=== PATIENT | male | born 2005 | race African-American/Black ===

== ENCOUNTER 2023-09-28 23:56 | Emergency (ER) | payer SELFPAY ==
--- NOTE | 2023-09-29 00:32 | ED ---
URI HPI - General Source: patient, RN notes reviewed Mode of arrival: ambulatory Limitations: no limitations <Keyla Joe - Last Filed: 09/29/23 03:01> <Deuce Flores - Last Filed: 09/29/23 05:52> - General Stated Complaint: Ear Ache, Sinus Infection, Headache Time Seen by Provider: 09/29/23 00:32 - History of Present Illness Initial Comments: 18-year-old male presented to the ER with a chief complaint of bilateral ear pain and headache. He states that been going on for 5 days. He also is endorsing congestion. States he has been giving hot and cold flashes as well. Denies any chest pain or shortness of breath. Denies any other complaints. (Keyla Joe) - Related Data Previous Rx's Medication Instructions Recorded Amoxic-Pot Clav 875-125Mg 1 tab PO Q12HR #20 tab 09/29/23 [Augmentin 875-125] Allergies Allergy/AdvReac Type Severity Reaction Status Date / Time No Known Allergies Allergy Verified 09/29/23 00:44 Review of Systems ROS Other: All systems not noted in ROS Statement are negative. <Keyla Joe - Last Filed: 09/29/23 03:01> ROS Other: All systems not noted in ROS Statement are negative. <Deuce Flores - Last Filed: 09/29/23 05:52> ROS Statement: Those systems with pertinent positive or pertinent negative responses have been documented in the HPI. General Exam General appearance: alert, in no apparent distress Head exam: Present: atraumatic, normocephalic, normal inspection ENT exam: Present: normal exam, normal oropharynx, mucous membranes moist, TM's normal bilaterally (Erythematous with fluid collection behind bilateral tympanic membranes) Neck exam: Present: normal inspection. Absent: tenderness, meningismus, lymphadenopathy Respiratory exam: Present: normal lung sounds bilaterally. Absent: respiratory distress, wheezes, rales, rhonchi, stridor Cardiovascular Exam: Present: regular rate, normal rhythm, normal heart sounds. Absent: systolic murmur, diastolic murmur, rubs, gallop, clicks Skin exam: Present: warm, dry, intact, normal color. Absent: rash <Keyla Joe - Last Filed: 09/29/23 03:01> - General Exam Comments Initial Comments: Visual Physical Exam Vital signs reviewed General: Well-appearing, nontoxic, no acute distress. Head: Normocephalic, atraumatic Eyes: PERRLA, EOMI ENT: Airway patent Chest: Nonlabored breathing Skin: No visual rash, normal skin tone Neuro: Alert and oriented 3 Musculoskeletal: No gross abnormalities (Keyla Joe) Course Vital Signs 09/29/23 09/29/23 00:42 02:34 Temperature 98 F 98.1 F Pulse Rate 82 85 Respiratory 18 18 Rate Blood Pressure 136/91 130/86 O2 Sat by Pulse 97 98 Oximetry Medical Decision Making <Keyla Joe - Last Filed: 09/29/23 03:01> <Deuce Flores - Last Filed: 09/29/23 05:52> - Medical Decision Making I performed the quick note portion of this chart. Electronically signed by Keyla Joe PA-C Was pt. sent in by a medical professional or institution ([facility] Peters, SOUND E[employer] MANAGER, urgent care, hospital, or [facility]...) When possible be specific @ -No Did you speak to anyone other than the patient for history (EMS, parent, family, police, friend...)? What history was obtained from this source @ -No Did you review nursing and triage notes (agree or disagree)? Why? @ -I reviewed and agree with nursing and triage notes Were old charts reviewed (outside hosp., previous admission, EMS record, old EKG, old radiological studies, urgent care reports/EKG's, [facility] records)? Report findings @ -No old charts were reviewed Differential Diagnosis (chest pain, altered mental status, abdominal pain women, abdominal pain men, vaginal bleeding, weakness, fever, dyspnea, syncope, headache, dizziness, GI bleed, back pain, seizure, CVA, palpatations, mental health, musculoskeletal)? @ -COVID, RSV, influenza, viral sinusitis, pneumonia this list is not meant to be all-inclusive EKG interpreted by me (3pts min.). @ -None X-rays interpreted by me (1pt min.). @ -None done CT interpreted by me (1pt min.). @ -None done U/S interpreted by me (1pt. min.). @ -None done What testing was considered but not performed or refused? (CT, X-rays, U/S, labs)? Why? @ -None What meds were considered but not given or refused? Why? @ -None Did you discuss the management of the patient with other professionals (professionals i.e. , PA, SOUND EFFECTS MANAGER, lab, RT, psych nurse, social science research assistant, sample dye mixer, teacher, radiation officer, risk and insurance manager)? Give summary @ -No Was smoking cessation discussed for >3mins.? @ -No Was critical care preformed (if so, how long)? @ -No Were there social determinants of health that impacted care today? How? (Homelessness, low income, unemployed, alcoholism, drug addiction, transportation, low edu. Level, literacy, decrease access to med. care, [facility], rehab)? @ -No Was there de-escalation of care discussed even if they declined (Discuss DNR or withdrawal of care, Hospice)? DNR status @ -No What co-morbidities impacted this encounter? (DM, HTN, Smoking, COPD, CAD, Cancer, CVA, ARF, Chemo, Hep., AIDS, mental health diagnosis, sleep apnea, morbid obesity)? @ -None Was patient admitted / discharged? Hospital course, mention meds given and route, prescriptions, significant lab abnormalities, going to OR and other pertinent info. @ -Discharge. 18-year-old male presented to the ER with a chief complaint of bilateral ear pain. History and physical exam completed. Vitals stable. Patient in no signs of acute distress and nontoxic-appearing. COVID, RSV, influenza negative. Strep negative. Patient started on Augmentin, first dose in ER. Patient also received IM Decadron and p.o. Tylenol for symptom control in the ER. Return parameters discussed. Patient discharged in stable condition with follow-up to PCP. Patient verbally expressed understanding and agreement with care plan. Case discussed with ED attending, Dr. Flores. Undiagnosed new problem with uncertain prognosis? @ -No Drug Therapy requiring intensive monitoring for toxicity (Heparin, Nitro, Insulin, Cardizem)? @ -No Were any procedures done? @ -No Diagnosis/symptom? @ -Otitis media Acute, or Chronic, or Acute on Chronic? @ -Acute Uncomplicated (without systemic symptoms) or Complicated (systemic symptoms)? @ -Uncomplicated Side effects of treatment? @ -No Exacerbation, Progression, or Severe Exacerbation? @ -No Poses a threat to life or bodily function? How? (Chest pain, [place], [place], pneumonia, PE, COPD, DKA, ARF, appy, cholecystitis, CVA, Diverticulitis, Homicidal, Suicidal, threat to staff... and all critical care pts) @ -No (Keyla Joe) Patient's mother was on the phone and did ask that I speak with her and evaluate the patient. Patient does have bilateral erythematous tympanic membranes with fluid collection, left worse than right. No mastoid tenderness. I suspect bilateral otitis media at this time. I agree with the midlevel's assessment. Discussed this with the patient's mother who was in agreement the plan for discharge. (Deuce Flores) - Lab Data Lab Results 09/29/23 09/29/23 Range/Units 00:59 00:59 Influenza Type A (PCR) Not Detected (Not Detectd) Influenza Type B (PCR) Not Detected (Not Detectd) RSV (PCR) Not Detected (Not Detectd) SARS-CoV-2 (PCR) Not Detected (Not Detectd) Group A Strep (PCR) NOT DETECTED (Not Detectd) Disposition Is patient prescribed a controlled substance at d/c from ED?: No Time of Disposition: 02:06 <Keyla Joe - Last Filed: 09/29/23 03:01> <Deuce Flores - Last Filed: 09/29/23 05:52> Clinical Impression: Otitis media Disposition: HOME SELF-CARE Condition: Stable Additional Instructions: Complete full course of antibiotics. You may take [id number] Tylenol and Motrin for pain control. Follow-up with PCP. Return to the ER for any new or worsening concerns. Prescriptions: Amoxic-Pot Clav 875-125Mg [Augmentin 875-125] 1 tab PO Q12HR #20 tab Referrals: None,Stated [Primary Care Provider] - 1-2 days
[2023-09-29 00:48] VITALS: RESP 18
[2023-09-29] MEDS: ACETAMINOPHEN TAB 325 MG TAB PO STA (01:03)
[2023-09-29] MEDS: DEXAMETHASONE SOD PHOSPHATE 4 MG/ML 1 ML VIAL IM STA (02:18)
[2023-09-29] MEDS: AMOXIC-POT CLAV 875-125MG 1 EACH TAB PO STA (02:21)
[2023-09-29 02:58] VITALS: BP 130/86; PULSE 85; TEMP 98.1
== END 2023-09-29 03:39 | disposition home or self-care (01) ==
LOC: EC 23:56
DX: H66.93 Otitis media, unspecified, bilateral (principal); Z11.52 Encounter for screening for COVID-19
CPT/HCPCS: 87651; 87636; 99284; 96372; J1100